=== PATIENT | male | born 1975 | race Caucasian/White ===

== ENCOUNTER 2023-10-04 03:45 | Emergency (ER) | payer SELFPAY ==
[~2023-10-04] VITALS: Ht 177.8 cm; Wt 117.9 kg
[2023-10-04 03:45] VITALS: BP 135/72; PULSE 92; RESP 17; TEMP 98.2; O2SAT 95
[2023-10-04 05:10] VITALS: BP 135/72; PULSE 92; RESP 17; TEMP 98.2; O2SAT 95
== END 2023-10-04 05:10 ==
LOC: MED 03:45
DX: S16.1XXA Strain of muscle, fascia and tendon at neck level, initial encounter (principal); S09.90XA Unspecified injury of head, initial encounter; Z98.890 Other specified postprocedural states; Z88.0 Allergy status to penicillin; Y04.0XXA Assault by unarmed brawl or fight, initial encounter; Y92.89 Other specified places as the place of occurrence of the external cause; Y93.89 Activity, other specified; Y99.8 Other external cause status
CPT/HCPCS: 70450; 70486; 72125; 99284